=== PATIENT | female | born 1945 | race Caucasian/White ===

== ENCOUNTER 2019-02-08 00:39 | Outpatient (CLI) | payer MEDICARE, OTHER, SELFPAY ==
--- NOTE | 2019-02-08 12:20 | DI.MAMMO_ITS ---
SYMPTOM/DIAGNOSIS: SCREENING Z12.31 BILATERAL SCREENING MAMMOGRAM: Mammograms were interpreted according to the usual protocol including computer analysis with CAD system, tomosynthesis and C view imaging. Comparison is made with exams from 2010 through 2015. The breasts are composed of scattered fibroglandular densities. No suspicious masses or suspicious microcalcifications are seen. There has been no significant change. IMPRESSION: Category 1, negative mammogram. Yearly screening mammography is recommended. Breast density category B. SA ASSESSMENT OF FINDINGS: Negative. Category 1. Patient will receive a letter notifying them of these results. BI-RADS category B. There are scattered areas of fibroglandular density.
== END 2019-02-08 00:59 ==
PROVIDERS: PCP Internal Medicine; Visit Provider Internal Medicine
DX: Z12.31 Encounter for screening mammogram for malignant neoplasm of breast (principal)
CPT/HCPCS: 77063; 77067

== ENCOUNTER 2019-07-05 17:11 | Emergency (ER) | payer MEDICARE, OTHER, SELFPAY ==
[2019-07-05 17:15] VITALS: BP 139/78; PULSE 68; RESP 20; TEMP 36.3; O2SAT 100
[2019-07-05 17:37] LABS: Bilirubin Negative (Negative); Blood Small (Negative); Clarity Clear (Clear); Glucose Negative (Negative); Ketones Trace mg/dL (Negative); Leukocyte Esterase Negative (Negative); Nitrite Negative (Negative); Specific Gravity >= 1.030 (1.005-1.025); Urobilinogen 0.2 EU/dL (Up TO 0.2)
--- NOTE | 2019-07-05 17:37 | ED.GENADUL_ITS ---
Discharge Plan Disposition Patient Disposition: HOME Condition: Good Discharge Details Clinical Impression: Kidney stone Primary Care Provider: Viv Fan ED Provider: Fuentes Hinson Home Meds and New Rx's Prescriptions: No Action pravastatin 20 mg tablet 20 mg PO DAILY Qty: 90 RF: 3 multivitamin [Daily Multi-Vitamin] 1 EACH tablet 1 ea PO DAILY RF: 0 hydroxychloroquine 200 MG tablet 300 mg PO DAILY RF: 0 [id number]-mmhxuovfz-hoz C-Mn [Glucosamine 1500 Complex] 1 EACH capsule 2 ea PO DAILY RF: 0 cholecalciferol (vitamin D3) 2,000 UNIT tablet 2,000 unit PO DAILY RF: 0 zolpidem 5 mg tablet 5 mg PO HS PRN PRNRF: 0 Discharge Instructions Instructions: Kidney Stones (ED) Additional Instructions: At this time it appears that you have a passed kidney stone. There is no evidence of of infection. Your renal function is otherwise great. Please take Tylenol 1000 mg and ibuprofen 600 mg as needed for pain if it recurs. Please continue to drink plenty of fluids. If you notice any worsening of your symptoms, or any new symptoms such as vomiting, diarrhea, fever, chills, shortness of breath, chest pain, numbness, weakness, or fainting , please return immediately to the emergency department for reevaluation. Please follow up with your primary care provider as soon as possible for reassessment and reevaluation. As always, it was a pleasure participating in your medical care today. Referrals: Viv Fan MD [Primary Care Provider] - Discharge Data Discharge Date/Time-TO BE ENTERED AT DEPARTURE: 07/05/19 19:55 Medical Decision Making This is a pleasant 74-year-old female who presents for left-sided abdominal pain for the last day. Pain is crampy in nature, but no urinary symptoms. No significant vomiting. No diarrhea or blood in her stool or urine. Physical exam demonstrates reproducible tenderness in the left lower quadrant. Differential is highest for diverticulitis versus urolithiasis. CT scan was ordered and shows evidence of mild haziness and irritation around the left ureter and pelvic region. No evidence of obstructive uropathy. Differential highest per radiology for recently passed stone versus infection. Urinalysis shows no evidence of urinary tract infection whatsoever, no significant white count on labs. No fever. Signs and symptoms clinically inconsistent with pyelonephritis or urinary tract infection. Shortly after the CT scan the patient had complete resolution of her symptoms. Her clinical symptoms appear consistent with a recently passed kidney stone. As she is currently making urine and feels well with no signs of significant kidney damage or infection I feel she can be safely discharged home. I did discuss with her the incidental findings on her CT scan and discussed the importance of follow-up. I have extensively reviewed the treatment plan and discharge instructions with the patient and their family. I have addressed all patient concerns at this time. The patient and family was made aware of what symptoms to monitor for that would warrant a return to the emergency department. Discussed the plan with the patient and family, they demonstrate verbal understanding and agreement with our assessment and plan at this time. No relevant prior studies available. FINDINGS: Lungs: Scarring and atelectasis at the lung bases. Mild cylindrical bronchiectasis also appreciated. No acute findings at the lung bases. Mediastinum: A small hiatal hernia is present. Liver: There is marked enlargement of the liver. 1.8 cm left hepatic lobe hypodense lesion favors a simple hepatic cyst. Smaller 9 mm hypodense lesion in the left hepatic lobe on image 136 series 6 also favors a small cyst. No acute liver pathology. Gallbladder and bile ducts: Patient status post cholecystectomy. No biliary ductal dilation. Pancreas: Normal. No ductal dilation. Spleen: Normal. No splenomegaly. Adrenals: Normal. No mass. Kidneys and ureters: There is a 2.9 cm right renal cyst. There is mild left pelviectasis with subtle adjacent fat haziness when compared with the right. No other acute renal findings. No definitive obstructive uropathy. Stomach and bowel: No bowel wall thickening, obstruction, or other acute pathology. Diffuse colonic diverticulosis is present. There is excessive colonic stool content.Appendix: No evidence of appendicitis. Intraperitoneal space: Unremarkable. No free air. No significant fluid collection. Vasculature: The vasculature demonstrates diffuse mild atherosclerotic calcification. Lymph nodes: Unremarkable. No enlarged lymph nodes. Bladder: Unremarkable as visualized. Reproductive: Unremarkable as visualized. Bones/joints: No acute skeletal pathology. Moderate multilevel degenerative changes of the spine, as manifested by multilevel anterior osteophytes and multilevel decrease in intervertebral disc space. Soft tissues: Unremarkable. IMPRESSION: 1. Differential diagnosis for left renal findings favors a recently passed stone versus a mild ascending UTI in the appropriate clinical setting. No definitive evidence for obstructive uropathy at this time. No other acute abdominopelvic pathology otherwise noted. 2. Incidental findings as above. Thank you for allowing us to participate in the care of your patient. Dictated and Authenticated by: Faisal Pettit MD 07/05/2019 7:30 PM Eastern Time ([place] & [place]) HPI General Date/Time Provider Initiated Documentation: 07/05/19 17:30 . HPI Narrative: 73-year-old female with hypertension and high cholesterol who presents today for mild abdominal distention mild left lower quadrant abdominal pain/crampiness. Symptoms began 1 day ago. She has no associated vomiting or diarrhea. No blood in her stool. She denies any other complaints at this time. She does have a history of diverticulitis in the past. She states that this feels slightly similar. She denies any burning with urination or hematuria. The pain did come on rather quickly. She denies any chest pain, shortness of b reath or chest tightness. She denies any recent foreign travel or antibiotic use. Related Data Home Medications Medication Instructions Recorded Confirmed cholecalciferol (vitamin D3) 2,000 unit PO DAILY 01/05/14 06/07/19 [id number] C-Mn 2 ea PO DAILY 01/05/14 06/07/19 [Glucosamine 1500 Complex] hydroxychloroquine 300 mg PO DAILY 01/05/14 06/07/19 multivitamin [Daily Multi-Vitamin] 1 ea PO DAILY 01/05/14 06/07/19 zolpidem 5 mg tablet 5 mg PO HS PRN PRN 12/28/18 06/07/19 pravastatin 20 mg tablet 20 mg PO DAILY #90 tab 03/21/19 06/07/19 Previous Rx's Medication Instructions Recorded pravastatin 20 mg tablet 20 mg PO DAILY #90 tab 03/21/19 Allergies Allergy/AdvReac Type Severity Reaction Status Date / Time adhesive Allergy Intermediate Skin Rash Verified 07/05/19 17:18 methotrexate AdvReac Unknown crackles Verified 07/05/19 17:18 lung bases pneumococcal vaccine AdvReac Verified 07/05/19 17:18 [From Pneumovax 23] General Stated Complaint: Abd Prob ORLIN: 3 Review of Systems All systems reviewed & are unremarkable except as noted in HPI and below [facility] Medical History (Updated 07/05/19 @ 19:45 by Fuentes Hinson DO) Cystocele with rectocele (Acute) Diverticulitis (Chronic) Hyperglycemia (Acute) Diet Controlled Hyperlipidemia (Acute) Insomnia (Acute) Osteoarthritis (Chronic) Feet Seropositive rheumatoid arthritis (Acute) Family History (Updated 11/23/18 @ 14:48 by Jenifer Farr) Mother , Age 86 Spinal osteoarthritis Bladder cancer Father , Airplane Accident No problems noted. Sister Hypertension Brother Alcohol abuse Brother , Childhood Accident No problems noted. Social History (Updated 06/07/19 @ 11:50 by Kelley Guo LPN) Smoking/Tobacco Use Status: Former Tobacco Use Quit Date: 05/31/04 Pack-years: 15 Tobacco: How many years used: 25 Alcohol Intake: current Alcohol Intake frequency: 0-2 drinks per day Alcohol type: beer, wine and hard liquor Drug use: Never Adopted: No Caregiver/Support person: No Foster care: No Household members: spouse Housing: house Number of Children: 2 number of grandchildren: 2 Communication Needs: Corrective Lenses Do you need help understanding health information?: Never current occupation: Artist, Self-Employed Sexually active: Yes Do you think of yourself as: straight/heterosexual Current gender identity: female What is your relationship status?: Panel score (0-1 are the most socially isolated patients): 1 What type of physical activity do you participate in: walking Frequency: daily Special gail needs: No Seatbelt use: always Drive intox or ride w/intox passenger coach driver: No Working smoke detector in home: Yes Fire extinguisher in home: Yes Do you feel safe at home: Yes Do you feel safe in your relationship?: Yes Exam Narrative Exam Narrative: 1.Const: Well-nourished, Well-developed, appearing stated age 2.Eyes: PERRL, no conjunctival injection, and symmetrical lids. 3.ENT: Atraumatic external nose and ears. Moist MM. Neck: Symmetric, trachea midline, No thyromegaly. 4.CVS: +S1/S2, No murmurs or gallops. Peripheral pulses 2+ and equal in all extremities. Brisk capillary refill in all extremities. 5.RESP: Unlabored respiratory effort. Clear to auscultation bilaterally. No wheezes rales or rhonchi 6.GI: Soft, minimal bloating but no distention, no guarding or rebound. Mild pain left lower abdominal quadrant. No pain in the right lower abdominal quadrant. Negative Judge sign, no pain at McBurney's point. Minimal bilateral CVA tenderness. 7.MSK: Normocephalic/Atraumatic, Extremities w/o deformity or ttp No cyanosis or clubbing, Normal movement of all extremities 8.Skin: Warm, Dry. No rashes or lesions. 9.Neuro: ship's master II-XII grossly intact. Sensation grossly intact, no focal neurologic deficits. 10.Psych: (AAO) x3. Appropriate mood and affect Course Vital Signs Vital signs: Vital Signs Temperature 36.3 C L 07/05/19 17:15 Pulse 68 07/05/19 17:15 Respiratory Rate 07/05/19 17:15 Blood Pressure 139/78 07/05/19 17:15 Pulse Oximetry 100 07/05/19 17:15 Temperature 36.3 C L 07/05/19 17:15 Temperature Source Skin 07/05/19 17:15 Pulse 68 07/05/19 17:15 Respiratory Rate 20 07/05/19 17:15 Respiratory Effort Non-Labored 07/05/19 17:17 Blood Pressure 139/78 07/05/19 17:15 Blood Pressure Position Sitting 07/05/19 17:15 Pulse Oximetry 100 07/05/19 17:15 Oxygen Delivery Method Room Air 07/05/19 17:15 Oxygen Flow Rate 0 07/05/19 17:15 Pain Level 6 07/05/19 17:15
[2019-07-05 17:48] LABS: Bacteria Few HPF (Negative); C & S Indicated? No; Crystals Negative HPF (Negative); Epithelial Cells Few HPF (Negative); Mucus Trace (Negative); RBC 20-50 HPF (0-2); WBC 0-2 HPF (0-5)
[2019-07-05 17:48] LABS: Lactate 0.8 mmol/L (0.6-1.4)
[2019-07-05 17:49] LABS: Abs Immature Grans 0.01 k/cumm (0.0-0.09); Absolute Basophil Count 0.04 k/cumm (0.0-0.2); Absolute Eosinophil Count 0.13 k/cumm (0.0-0.7); Absolute Lymphocyte Count 2.28 k/cumm (1.2-3.4); Absolute Monocyte Count 0.78 k/cumm (0.11-0.7); Absolute Neutrophil Count 5.64 k/cumm (1.2-6.7); Basophils % 0.5; Eosinophils % 1.5; HCT 44.4 % (36.0-46.0); HGB 14.9 g/dL (12.0-15.5); Immature Grans % 0.1 %; Lymphocytes % 25.7; Mean Corp. HGB Concentration 33.6 g/dL (32.0-36.0); Mean Corpuscular Hemoglobin 30.3 pg (27.0-33.0); Mean Corpuscular Volume 90.2 fL (80-95); Mean Platelet Volume 9.1 fL (8.0-11.0); Monocytes % 8.8; Neutrophils % 63.4; Platelet Count 276 x1000/uL (130-400); RBC 4.92 m/cumm (4.00-5.20); RBC Distribution Width 12.5 % (11.7-14.6); White Blood Cell Count 8.88 k/cumm (4.4-10.8)
[2019-07-05] MEDS: Normal Saline 1,000 ML 1000 ML IV (17:54)
[2019-07-05] MEDS: Ondansetron 4 MG/2 ML VIAL (17:55)
[2019-07-05 18:03] LABS: ALT 25 U/L (14-59); AST 18 U/L (15-37); Albumin 3.8 g/dL (3.4-5.0); Alkaline Phosphatase 61 U/L (46-116); Anion Gap 5.7 mmol/L (3-11); BUN 15 mg/dL (7-18); Bilirubin, Total 0.3 mg/dL (0.2-1.0); CO2 30.3 mmol/L (21.0-32.0); CREATININE 0.76 mg/dL (0.55-1.02); Calcium 8.7 mg/dL (8.5-10.1); Chloride 101 mmol/L (98-107); Glucose 101 mg/dL (74-106); Lipase 223 U/L (73-393); Potassium 3.5 mmol/L (3.5-5.1); Sodium 137 mmol/L (136-145); Total Protein 7.4 g/dL (6.4-8.2)
--- NOTE | 2019-07-05 18:58 | DI.CT_ITS ---
EXAM: CT ABDOMEN PELVIS WO CLINICAL HISTORY: left sided abdominal pain, r/o stone vs divertic COMPARISON: No exams were available for comparison FINDINGS: CT examination of the abdomen and pelvis was performed without contrast administration. Images ob[place]i [place] through the lung bases show mild changes of scarring. There is a probable left lobe hepatic lesion, 2.2 cm in greatest diameter. Liver may be mildly enlar ged. Prior cholecystectomy noted. No biliary dilatation seen. No pancreatic abnormality identified by noncontrast criteria. Spleen is unremarkable. There is an apparent upper pole cyst of the right kidney measuring about 3 cm in greatest diameter. Right kidney is otherwise unremarkable. Possible slight left renal caliceal dilatation, no gross hyd ronephrosis. No ureteral calcification or ureteral dilatation. Urinary bladder is essentially empty . 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 No gross abdominal adenopathy. Appendix is normal. No evidence of diverticulitis or bowel obstruction. Abdominal aorta is of normal diameter. Adrenals appear normal. IMPRESSION: Question slight left renal caliceal dilatation, findings could be associated with recently passed ure teral stone, question slightly increased left renal size compared to the right, pyelonephritis should also be considered in the differential diagnosis, please correlate clinically and with appropriate l aboratory examination.
--- NOTE | 2019-07-05 19:30 | DI.VRAD_ITS ---
PROCEDURE INFORMATION: Exam: CT Abdomen And Pelvis Without Contrast Exam date and time: 07/05/2019 5:37 PM Age: 73 years old Clinical indication: Abdominal pain; Localized; Left; Additional info: Renal stone vs diverticulitis TECHNIQUE: Imaging protocol: Computed tomography of the abdomen and pelvis without contrast. Radiation optimization: All CT scans at this facility use at least one of these dose optimization techniques: automated exposure control; mA and/or kV adjustment per patient size (includes targeted exams where dose is matched to clinical indication); or iterative reconstruction. COMPARISON: No relevant prior studies available. FINDINGS: Lungs: Scarring and atelectasis at the lung bases. Mild cylindrical bronchiectasis also appreciated. No acute findings at the lung bases. Mediastinum: A small hiatal hernia is present. Liver: There is marked enlargement of the liver. 1.8 cm left hepatic lobe hypodense lesion favors a simple hepatic cyst. Smaller 9 mm hypodense lesion in the left hepatic lobe on image 136 series 6 also favors a small cyst. No acute liver pathology. Gallbladder and bile ducts: Patient status post cholecystectomy. No biliary ductal dilation. Pancreas: Normal. No ductal dilation. Spleen: Normal. No splenomegaly. Adrenals: Normal. No mass. Kidneys and ureters: There is a 2.9 cm right renal cyst. There is mild left pelviectasis with subtle adjacent fat haziness when compared with the right. No other acute renal findings. No definitive obstructive uropathy. Stomach and bowel: No bowel wall thickening, obstruction, or other acute pathology. Diffuse colonic diverticulosis is present. There is excessive colonic stool content. Appendix: No evidence of appendicitis. Intraperitoneal space: Unremarkable. No free air. No significant fluid collection. Vasculature: The vasculature demonstrates diffuse mild atherosclerotic calcification. Lymph nodes: Unremarkable. No enlarged lymph nodes. Bladder: Unremarkable as visualized. Reproductive: Unremarkable as visualized. Bones/joints: No acute skeletal pathology. Moderate multilevel degenerative changes of the spine, as manifested by multilevel anterior osteophytes and multilevel decrease in intervertebral disc space. Soft tissues: Unremarkable. IMPRESSION: 1. Differential diagnosis for left renal findings favors a recently passed stone versus a mild ascending UTI in the appropriate clinical setting. No definitive evidence for obstructive uropathy at this time. No other acute abdominopelvic pathology otherwise noted. 2. Incidental findings as above. Dictated and Authenticated by: Faisal Adams MD. Ordering:VIGNESH Dill MD
== END 2019-07-05 19:55 | disposition home or self-care (01) ==
PROVIDERS: Emergency Provider Student in an Organized Health Care Education/Training Program; PCP Internal Medicine
DX: R10.32 Left lower quadrant pain (principal); N20.0 Calculus of kidney; I10 Essential (primary) hypertension; E11.9 Type 2 diabetes mellitus without complications
CPT/HCPCS: 36415; 80053; 83690; 96365; 96374; 96375; 99285; 74176; 81003; 81015; 83605; 85025; 99284; J2405

== ENCOUNTER 2019-10-10 19:00 | Outpatient (REF) | payer MEDICARE, OTHER, SELFPAY | END 2019-10-10 19:20 | LOC: LBN 19:00 | PROVIDERS: PCP Internal Medicine; Visit Provider Family Medicine | DX: R30.0 Dysuria (principal) | CPT/HCPCS: 87077; 87086; 87186 ==

== ENCOUNTER 2019-12-08 10:41 | Day surgery (SDC) | payer MEDICARE, OTHER, SELFPAY ==
[2019-12-08 10:45] VITALS: BP 135/88; PULSE 70; RESP 16; TEMP 36.5; O2SAT 98
[2019-12-08] MEDS: Tetracaine 0.5% 4 ML BTL OD (12:46)
[2019-12-08] MEDS: Lidocaine 2% Jelly 6 ML SYR (12:47)
[2019-12-08] MEDS: Balanced Salt Soln.-PLUS 500 ML BAG (12:57)
[2019-12-08] MEDS: Lidocaine 1% Pres-Free 5 ML VIAL (12:58)
[2019-12-08] MEDS: Moxifloxacin-PF 1 MG/ML VIAL (12:59)
--- NOTE | 2019-12-08 13:25 | W.PM.DSUDISC ---
Discharge Plan Disposition Patient Disposition: HOME Condition: Good Discharge Details Reason For Visit: CATARACT Attending Provider: Abhishek Landrum Primary Care Provider: Viv Fan Home Meds and New Rx's Prescriptions: No Action lorazepam 0.5 mg tablet 0.5 mg PO DAILY PRNRF: 0 lorazepam 0.5 mg tablet 0.5 mg PO DAILY MDD 0.5mg PRN (Reason: anxiety) Qty: 30 RF: 0 pravastatin 20 mg tablet 20 mg PO DAILY Qty: 90 RF: 3 multivitamin [Daily Multi-Vitamin] 1 EACH tablet 1 ea PO DAILY RF: 0 hydroxychloroquine 200 MG tablet 300 mg PO DAILY RF: 0 [id number]-vhp C-Mn [Glucosamine 1500 Complex] 1 EACH capsule 2 ea PO DAILY RF: 0 cholecalciferol (vitamin D3) 2,000 UNIT tablet 2,000 unit PO DAILY RF: 0 zolpidem 5 mg tablet 5 mg PO HS PRN PRNRF: 0 guaifenesin 1,200 mg Tablet Extended Release 12hr 1,200 mg PO PRN PRNRF: 0 Discharge Instructions Stand Alone Forms: Post-op Topical Cataract, Eugenio Miller (DSU) Discharge Orders Discharge Orders: Discharge Order (Routine); Ordered 12/08/19 Ordered By: Abhishek aLndrum DS: Diagnosis Discharge Diagnosis (1) Posterior subcapsular age-related cataract, right eye: Status: Resolved (2) Nuclear sclerotic cataract of right eye: Status: Resolved
--- NOTE | 2019-12-08 13:26 | ROE_ITS ---
Date of service: 12/08/19 Time of Service: 13:27 Operative Note Operative Note DATE OF PROCEDURE: 12/08/19 PRE-OP DIAGNOSIS: Nuclear/posterior subcapsular cataract, right eye POST-OP DIAGNOSIS: same PROCEDURE: Cataract extraction using phacoemulsification with intraocular lens implant, right eye SURGEON: Abhishek Landrum ANESTHESIA: MAC and local (sub-tenon's anesthetic infiltration) ESTIMATED BLOOD LOSS: 0 PATHOLOGY: none sent COMPLICATIONS: None Patient was transported to: same day Patient's condition: stable Implants: [employer] / [employer] Tecnis [id number] intraocular lens Indications: Progressive decreased vision due to cataract, right eye Procedure Description: CATARACT SURGERY OPERATIVE REPORT PREOPERATIVE DIAGNOSIS: Nuclear/posterior subcapsular cataract, right eye POSTOPERATIVE DIAGNOSIS: Same OPERATION: Cataract extraction using phacoemulsification with posterior chamber intraocular lens implant, right eye. IOL: IOL Precision Inspector/Model: [employer] / ELAN Tecnis ZCB00 IOL Power: + 25.50 diopters IOL Serial Number: [id number] Optic Diameter: 6.0mm Haptic/Overall Diameter: 13.0mm PHACO INFO: Daniel [employer] Vision System with OZil and Active [employer]uidics Cumulative Dispersed Energy (CDE): 16.78 seconds SURGEON: Abhishek Landrum MD, OCTAVIO ANESTHESIA: Monitored Anesthesia Care (MAC), with local sub-tenon's anesthetic infiltration COMPLICATIONS: None SPECIMENS: None INDICATIONS FOR PROCEDURE: The patient is a 74-year-old lady with history of diminished visual acuity in her right eye secondary to development of dense nuclear cataract with some posterior subcapsular cataract. The option of cataract surgery was offered to the patient and she wished to proceed. PROCEDURE: The correct surgical eye was identified and marked as the right eye and the pupil was dilated in the preoperative area using mydriatics and cycloplegics. The dilated pupil size was 7.0 mm. Oral sedation was administered in the form of an Imprimis MKO Melt (midazolam 3mg/ketamine 25mg/ondansetron 2mg). The patient was brought to the operating room where cardiopulmonary monitoring was instituted and surgical time-out was performed, confirming the correct operative eye and IOL power. Topical anesthesia was administered and ophthalmic povidone-iodine 5% was instilled into the conjunctival fornices. Lidocaine gel was applied to the cornea and the kat-ocular area was prepped with Betadine 10% solution and draped in the usual sterile fashion for intraocular surgery, including an aperture drape. A Tegaderm transparent film dressing was cut in half and used to cover the lashes and lid margins. Care was taken to sequester the lashes and lid margins under the Tegaderm dressing. A lid speculum was placed between the lids of the operative eye and the Santi-Ed operating microscope was man euvered into position. Rosetta scissors were then used to make a conjunctival buttonhole approximately 6mm posterior to the limbus in the inferonasal quadrant. Blunt dissection was carried out to expose bare sclera, and a blunt-tipped sub-tenon?s anesthesia cannula was introduced and passed posteriorly along the globe where non- preserved plain lidocaine was injected into posterior sub-Tenon?s space. A sideport knife was used to make a paracentesis port inferiortemporally. Intraocular phenylephrine/lidocaine was injected into the anterior chamber. The anterior chamber was then filled with [place] Pro. A 2.4mm keratome knife was used to create a half-thickness groove at the limbus and then to construct a three-plane near-clear corneal tunnel extending 2.0mm into clear cornea in the superiortemporal position. . A flap was raised on the anterior capsule and capsulorhexis forceps were used to complete a continuous curvilinear capsulorhexis of 5.0 mm. Balanced salt solution was then used to perform cortical cleaving hydrodissection and nuclear hydrodelineation until the lens could be freely rotated within the capsular bag. The lens nucleus was then disassembled and removed within the capsular bag and iris plane using phacoemulsification. Residual cortical material was removed using the I/A handpiece. The posterior capsule was carefully polished to remove as much residual lens epithelial cells as safely possible. The capsular bag was then inflated and the anterior chamber deepened with viscoelastic. The lens implant described above was inserted into the capsular bag using the ELAN [place] Injector. A Kuglen hook was used to dial the IOL into position. Residual viscoelastic was then removed first from posterior to the IOL, then from the anterior chamber using the I/A handpiece. The lens implant was noted to center nicely within the capsular bag. The incisions were stromally hydrated, and the anterior chamber was reformed using BSS. Then 0.5cc of moxifloxacin 1.0mg/ml were injected into the capsular bag and anterior chamber. The incisions were checked with a Weck spear and found to be secure. Several drops of ophthalmic povidone-iodine 5% were then applied to the eye followed by two drops of Imprimis combination prednisolone/moxifloxacin/nepafenac solution. The drapes were removed and a clear plastic protective eye shield was placed over the eye. The patient was then returned to [facility] in stable condition.
[2019-12-08 13:55] VITALS: BP 124/76; PULSE 75; RESP 16; TEMP 36.8; O2SAT 97
== END 2019-12-08 13:55 | disposition home or self-care (01) ==
PROVIDERS: PCP Internal Medicine; Visit Provider Ophthalmology
PROC: (CPT 66984; principal; 2019-12-08 13:30)
DX: H25.11 Age-related nuclear cataract, right eye (principal); H25.011 Cortical age-related cataract, right eye
CPT/HCPCS: 66984; V2632

== ENCOUNTER 2019-12-22 10:26 | Day surgery (SDC) | payer MEDICARE, OTHER, SELFPAY ==
[2019-12-22 10:32] VITALS: BP 128/84; PULSE 67; RESP 22; TEMP 36.4; O2SAT 97
--- NOTE | 2019-12-22 11:45 | W.PM.DSUDISC ---
Discharge Plan Disposition Patient Disposition: HOME Condition: Good Discharge Details Reason For Visit: CATARACT OS Attending Provider: Abhishek Landrum Primary Care Provider: Viv Fan Home Meds and New Rx's Prescriptions: No Action lorazepam 0.5 mg tablet 0.5 mg PO DAILY PRNRF: 0 lorazepam 0.5 mg tablet 0.5 mg PO DAILY MDD 0.5mg PRN (Reason: anxiety) Qty: 30 RF: 0 pravastatin 20 mg tablet 20 mg PO DAILY Qty: 90 RF: 3 multivitamin [Daily Multi-Vitamin] 1 EACH tablet 1 ea PO DAILY RF: 0 hydroxychloroquine 200 MG tablet 300 mg PO DAILY RF: 0 eydzivrelcg-ehorzmrru-sdj C-Mn [Glucosamine 1500 Complex] 1 EACH capsule 2 ea PO DAILY RF: 0 cholecalciferol (vitamin D3) 2,000 UNIT tablet 2,000 unit PO DAILY RF: 0 zolpidem 5 mg tablet 5 mg PO HS PRN PRNRF: 0 guaifenesin 1,200 mg Tablet Extended Release 12hr 1,200 mg PO PRN PRNRF: 0 acetaminophen 325 mg Capsule 325 mg PO QID PRN PRNRF: 0 Discharge Instructions Stand Alone Forms: Post-op Topical Cataract, Eugenio Miller ([facility]U) Discharge Orders Discharge Orders: Discharge Order (Routine); Ordered 12/22/19 Ordered By: Abhishek Landrum DS: Diagnosis Discharge Diagnosis (1) Nuclear sclerotic cataract of left eye: Status: Resolved (2) Posterior subcapsular age-related cataract of left eye: Status: Resolved
[2019-12-22] MEDS: Midazolam/Ketamine/Ondansetron (3/25/2MG) 1 TAB 1 EACH SL (11:50)
[2019-12-22] MEDS: Tetracaine 0.5% 4 ML BTL OS (11:54)
[2019-12-22] MEDS: Balanced Salt Soln.-PLUS 500 ML BAG (12:00)
[2019-12-22] MEDS: Lidocaine 1% Pres-Free 5 ML VIAL (12:04)
[2019-12-22] MEDS: Lidocaine 2% Jelly 6 ML SYR (12:05)
[2019-12-22] MEDS: Moxifloxacin-PF 1 MG/ML VIAL (12:05)
--- NOTE | 2019-12-22 12:30 | ROE_ITS ---
Time of Service: 12:30 Operative Note Operative Note DATE OF PROCEDURE: 12/22/19 PRE-OP DIAGNOSIS: Nuclear/posterior subcapsular cataract, left eye POST-OP DIAGNOSIS: same PROCEDURE: Cataract extraction using phacoemulsification with intraocular lens implant, left eye SURGEON: Abhishek Landrum ANESTHESIA: MAC and local (sub-tenon's anesthetic infiltration) PATHOLOGY: none sent COMPLICATIONS: None Patient was transported to: same day Patient's condition: stable Implants: [employer] / [employer] Tecnis ZCB00 Indications: Progressive decreased vision due to cataract, left eye Procedure Description: CATARACT SURGERY OPERATIVE REPORT PREOPERATIVE DIAGNOSIS: Nuclear/posterior subcapsular cataract, left eye POSTOPERATIVE DIAGNOSIS: Same OPERATION: Cataract extraction using phacoemulsification with posterior chamber intraocular lens implant, left eye. IOL: IOL Bottom Liquor Attendant/Model: [employer] / ELAN [employer]ecnis ZCB00 IOL Power: + 26.0 diopters IOL Serial Number: [id number] Optic Diameter: 6.0mm Haptic/Overall Diameter: 13.0mm PHACO INFO: [facility] with OZil and Active [employer]uidics Cumulative Dispersed Energy (CDE): 22.92 seconds SURGEON: Abhishek Landrum MD, OCTAVIO ANESTHESIA: Monitored Anesthesia Care (MAC), with local sub-tenon's anesthetic infiltration COMPLICATIONS: None SPECIMENS: None INDICATIONS FOR PROCEDURE: The patient is a 74-year-old lady with history of diminished PROCEDURE: The correct surgical eye was identified and marked as the left eye and the pupil was dilated in the preoperative area using mydriatics and cycloplegics. The dilated pupil size was 7.0 mm. Oral sedation was administered in the form of an Imprimis MKO Melt (midazolam 3mg/ketamine 25mg/ondansetron 2mg). The patient was brought to the operating room where cardiopulmonary monitoring was instituted and surgical time-out was performed, confirming the correct operative eye and IOL power. Topical anesthesia was administered and ophthalmic povidone-iodine 5% was instilled into the conjunctival fornices. Lidocaine gel was applied to the cornea and the kat-ocular area was prepped with Betadine 10% solution and draped in the usual sterile fashion for intraocular surgery, including an aperture drape. A Tegaderm transparent film dressing was cut in half and used to cover the lashes and lid margins. Care was taken to sequester the lashes and lid margins under the Tegaderm dressing. A lid speculum was placed between the lids of the operative eye and the Santi-Ed operating microscope was maneuvered into position. Rosetta scissors were then used to make a conjunctival buttonhole approximately 6mm posterior to the limbus in the inferonasal quadrant. Blunt dissection was carried out to expose bare sclera, and a blunt-tipped sub-tenon?s anesthesia cannula was introduced and passed posteriorly along the globe where non- preserved plain lidocaine was injected into posterior sub-Tenon?s space. A sideport knife was used to make a paracentesis port superior/superiortemporally. Intraocular phenylephrine/lidocaine was injected into the anterior chamber. The anterior chamber was then filled with Healon EndoCoat. A 2.4mm keratome knife was used to create a half-thickness groove at the limbus and then to construct a three-plane near-clear corneal tunnel extending 2.0mm into clear cornea in the temporal position. . A flap was raised on the anterior capsule and capsulorhexis forceps were used to complete a continuous curvilinear capsulorhexis of 5.0 mm. The capsule was noted to be quite thin with moderate zonular laxity. Balanced salt solution was then used to perform cortical cleaving hydrodissecti on and nuclear hydrodelineation until the lens could be freely rotated within the capsular bag. The lens nucleus was then disassembled and removed within the capsular bag and iris plane using phacoemulsification. Residual cortical material was removed using the 45-degree angled silicone I/A tip with 0.3mm port. The posterior capsule was carefully polished to remove as much residual lens epithelial cells as safely possible. There were some wispy strands of cortex in the equator superiorly and inferiorly which could not be safely removed, as they caused D formation of the equatorial capsule due to loose zonules. The capsular bag was then inflated and the anterior chamber deepened with Healon Pro viscoelastic. The lens implant described above was inserted into the capsular bag using the ELAN [place] Injector. A Kuglen hook was used to dial the IOL into position. Residual viscoelastic was then removed first from posterior to the IOL, then from the anterior chamber using the I/A handpiece. The lens implant was noted to center nicely within the capsular bag. The incisions were stromally hydrated, and the anterior chamber was reformed using BSS. Miostat was then injected into the anterior chamber. Then 0.5cc of moxifloxacin 1.0mg/ml were injected into the capsular bag and anterior chamber. The incisions were checked with a Weck spear and found to be secure. Several drops of ophthalmic povidone-iodine 5% were then applied to the eye followed by two drops of Imprimis combination prednisolone/moxifloxacin/nepafenac solution. The drapes were removed and a clear plastic protective eye shield was placed over the eye. The patient was then returned to [facility] in stable condition.
[2019-12-22 12:55] VITALS: BP 126/79; PULSE 71; RESP 18; TEMP 36.5; O2SAT 94
== END 2019-12-22 13:00 | disposition home or self-care (01) ==
PROVIDERS: PCP Internal Medicine; Visit Provider Ophthalmology
PROC: (CPT 66984; principal; 2019-12-22 13:30)
DX: H25.12 Age-related nuclear cataract, left eye (principal); H25.042 Posterior subcapsular polar age-related cataract, left eye
CPT/HCPCS: 66984; V2632

== ENCOUNTER 2020-03-14 07:36 | Outpatient (CLI) | payer MEDICARE, SELFPAY ==
[2020-03-17 02:53] LABS: Patient Race White; SARS-CoV-2 RNA Undetected (Undetected); SARS-CoV-2 Specimen Source Nasopharynx
== END 2020-03-14 07:56 ==
PROVIDERS: PCP Internal Medicine; Visit Provider Internal Medicine
DX: Z11.59 Encounter for screening for other viral diseases (principal)
CPT/HCPCS: U0003

== ENCOUNTER 2020-03-26 02:24 | Outpatient (CLI) | payer MEDICARE, OTHER, SELFPAY ==
[2020-03-26 11:04] LABS: Calculated LDL 127 mg/dL (<100); Cholesterol 227 mg/dL (<200); HDL Cholesterol 84 mg/dL (40-60); Triglyceride 82 mg/dL (<150)
== END 2020-03-26 02:44 ==
PROVIDERS: PCP Internal Medicine; Visit Provider Internal Medicine
DX: E78.00 Pure hypercholesterolemia, unspecified (principal)
CPT/HCPCS: 36415; 80061

== ENCOUNTER 2020-05-15 01:52 | Outpatient (CLI) | payer MEDICARE, OTHER, SELFPAY ==
[2020-05-15 09:12] LABS: Calculated LDL 106 mg/dL (<100); Cholesterol 215 mg/dL (<200); HDL Cholesterol 86 mg/dL (40-60); Triglyceride 118 mg/dL (<150)
== END 2020-05-15 02:12 ==
PROVIDERS: PCP Internal Medicine; Visit Provider Internal Medicine
DX: E78.00 Pure hypercholesterolemia, unspecified (principal)
CPT/HCPCS: 36415; 80061